=== PATIENT | female | born 1945 | race Caucasian/White ===

== ENCOUNTER 2025-02-07 11:55 | Emergency (ER) | payer BC ==
[~2025-02-07] VITALS: Ht 152.4 cm; Wt 60.3 kg
[2025-02-07] MEDS ORDERED: LEVO75TA PO (12:02)
[2025-02-07] MEDS ORDERED: KETOROLAC TROMETHAMINE 15 MG INJ ONE (12:16)
[2025-02-07] MEDS ORDERED: ONDANSETRON 4 MG/2 ML VIAL ONE ×2 (12:16→14:03)
[2025-02-07] MEDS ORDERED: HYDROMORPHONE 1 MG/1 ML DISP.SYRIN ONE (12:17)
[2025-02-07] MEDS: ONDANSETRON 4 MG/2 ML VIAL IV ONE ×2 (12:24→14:05)
[2025-02-07] MEDS: HYDROMORPHONE 1 MG/1 ML DISP.SYRIN IV ONE (12:24)
[2025-02-07] MEDS: KETOROLAC TROMETHAMINE 15 MG INJ IVP ONE (12:25)
[2025-02-07] MEDS ORDERED: FENTANYL CITRATE 100 MCG/2 ML AMPUL ONE (13:14)
[2025-02-07] MEDS ORDERED: PROPOFOL 200 MG/20 ML BOTTLE ONE (13:15)
[2025-02-07] MEDS: PROPOFOL 200 MG/20 ML BOTTLE IV ONE (13:57)
[2025-02-07] MEDS: FENTANYL CITRATE 100 MCG/2 ML AMPUL IV ONE (13:58)
[2025-02-07 14:00] VITALS: BP 126/72
[2025-02-07] MEDS ORDERED: PROCHLORPERAZINE MALEATE 5 MG TABLET ONE (14:50)
[2025-02-07] MEDS: PROCHLORPERAZINE MALEATE 5 MG TABLET PO ONE (15:07)
[2025-02-07] MEDS ORDERED: PROC-11 PO (16:54)
[2025-02-07] MEDS ORDERED: OXYC-128 PO (16:54)
[2025-02-07] MEDS ORDERED: TRAM50TA2 PO (16:54)
[2025-02-07 17:19] VITALS: BP 128/76; TEMP 208.6; O2SAT 97
== END 2025-02-07 17:15 | disposition home or self-care (01) ==
LOC: ER 11:55
DX: S43.015A Anterior dislocation of left humerus, initial encounter (principal); W01.0XXA Fall on same level from slipping, tripping and stumbling without subsequent striking against object, initial encounter; Y93.89 Activity, other specified; Y92.89 Other specified places as the place of occurrence of the external cause; Y99.9 Unspecified external cause status
CPT/HCPCS: 99285; 96374; 96375; 73080 ×2; 96376; J1885; J2405 ×2; J3010; J1171; J7040; J8499; A4606; A4663; J3490